=== PATIENT | male | born 1990 | race Caucasian/White ===

== ENCOUNTER 2017-12-24 21:09 | Emergency (ER) | END 2017-12-24 22:51 | disposition left against medical advice (07) ==

== ENCOUNTER 2018-09-22 14:25 | Emergency (ER) | payer BC ==
[~2018-09-22] VITALS: Ht 152.4 cm; Wt 48.9 kg
[~2018-09-22 14:25] MED LIST: NO MEDS
[2018-09-22 14:34] VITALS: Ht 152.4 cm; Wt 48.9 kg
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
[2018-09-22] MEDS ORDERED: SOD CHLORIDE 0.9% 1,000 ML IV STA (16:02)
[2018-09-22] MEDS ORDERED: ONDANSETRON 4 MG INJ IV STA (16:02)
[2018-09-22] MEDS ORDERED: KETOROLAC 15 MG INJ IV STA (16:02)
[2018-09-22] MEDS ORDERED: ONDA4TAB8 PO (17:03)
== END 2018-09-22 17:12 | disposition home or self-care (01) ==
LOC: FTE 14:25
DX: K52.9 Noninfective gastroenteritis and colitis, unspecified (principal); F17.210 Nicotine dependence, cigarettes, uncomplicated
CPT/HCPCS: 74176; 80053; 81003; 83690; 85025; 96361; 96374; 96375; 99285; J1885; J2405; J7030